=== PATIENT | female | born 1960 | race Caucasian/White ===

== ENCOUNTER 2025-06-22 06:08 | Outpatient (OUT) | payer BC, SELFPAY ==
--- OUTSIDE RECORDS SUMMARY | 2023-04-09 05:56 | XMS_ITS | Continuity of Care Document ---
Author Organization [facility] Address [address] [place] [address] Phone Care Team Providers [employer] Instructor Name Role Phone Mikey Yepez DO Unavailable Unavailable Allergies, Adverse Reactions, Alerts Substance Reaction Status Criticality lactose GI distress Active No Information Sulfa (Sulfonamide Antibiotics) Oral Blistering Active No Information Medications Medication Instructions Dosage Effective Dates (start - stop) Status Comments lisinopril 10 mg tablet take 1 tablet by oral route every day 10 MG - Active hydrochlorothiazide 25 mg tablet take 1 tablet by oral route every day 25 MG - Active multivitamin tablet - Active Co Q-10 100 mg capsule - Active MAGNESIUM (unknown strength) Not Available - Active melatonin 5 mg capsule - Active Procedures Procedure Date MED LIST DOCD IN [facility] DIAST BP 80-89 MM HG SYST BP < 130 MM HG OFFICE/OUTPATIENT VISIT, EST Attests To Documenting In EHR Current Tx ds RHYTHM ECG WITH REPORT OFFICE/OUTPATIENT VISIT, EST Attests To Documenting In EHR Current Tx ds MED LIST DOCD IN [facility] No Charge DIAST BP 80-89 MM HG SYST BP> = 140 MM HG6 IT URINALYSIS, AUTO, W/O SCOPE WELL EXAM, EST, AGE 40-64 Attests To Documenting In EHR Current Tx ds RHYTHM ECG WITH REPORT OFFICE/OUTPATIENT VISIT, EST Attests To Documenting In EHR Current Me ds URINALYSIS, AUTO, W/O SCOPE PREV VISIT, NEW, AGE 40-64 Attests To Documenting In EHR Current Me ds Advance Directives Directive Yes / No Effective Date File Name No Information Encounters Encounter Description Practice Location Reason(s) For Visit Diagnoses Date Provider Providers Copied on Encounter [facility], [id number], [place], [place], [id number] , [place] tel:[phone] [facility] No Information 3 Lucho Jensen. [address] [facility], [place], [address], [place]. tel:[phone] [facility], [address], [place], [place], [id number] , [place] tel:[phone] [facility] No Information 2 Lucho Jensen. [address] [facility], [place], [address], [place]. tel:[phone] OFFICE/OUTPA TIENT VISIT, EST [facility], [address], [place], [place], [id number] , [place] tel:[phone] [facility] B/P F/U (chief complaint) Body mass index (BMI) 32.0-32.9, adultEssential hypertensionPal pitations 2 Lucho Jensen. [address] [facility], [place], [address], [place]. tel:[phone] Referring Provider: [facility], [place], [address]. tel:[phone] OFFICE/OUTPA TIENT VISIT, EST [facility], [address], [place], [place], [id number] , [place] tel:[phone] [facility] medication management (chief complaint) PalpitationsEss ential hypertension Fe 2 Lucho Jensen. [address] [facility], [place], [address], [place]. tel:[phone] Referring Provider: Sunny Cuadra [facility], [place], [address]. tel:[phone] [facility], [address], [place], [place], [id number] , [place] tel:[phone] [facility] No Information 1 Lucho Jensen. [address] [facility], [place], [address], [place]. tel:[phone] Referring Provider: Sunny Cuadra [facility], [place], [address]. tel:[phone] WELL EXAM, EST, AGE 40-64 [facility], [address], [place], [place], [id number] , [place] tel:[phone] [facility] CPE (chief complaint) Body mass index (BMI) 31.0-31.9, adultEncounter for other general examinationEsse ntial hypertensionNon alcoholic fatty liver diseaseOther microscopic hematuriaLower urinary tract symptoms (LUTS) 1 Lucho Jensen. [address] [facility], [place], [address], [place]. tel:[phone] Referring Provider: Sunny Cuadra [facility], [place], [address]. tel:[phone] [facility], [address], [place], [place], [id number] , [place] tel:[phone] [facility] No Information 1 Lucho Jensen. [address] [facility], [place], [address], [place]. tel:[phone] OFFICE/OUTPA TIENT VISIT, EST [facility], [address], [place], [place], [id number] , [place] tel:[phone] [facility] Office visit (chief complaint) Body mass index (BMI) 35.0-35.9, adultPalpitatio ns 0 Lucho Jensen. [address] [facility], [place], [address], [place]. tel:[phone] [facility], [address], [place], [place], [id number] , [place] tel:[phone] [facility] No Information 0 Lucho Jensen. [address] [facility], [place], [address], [place]. 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 [address] [facility], [place], [address], [place]. tel:[phone] Referring Provider: Mikey Yepez, [address] [facility], [place], [address]. tel:[phone] Family History Family Member Type Diagnosis Age At Onset Paternal aunt Problem osteoporosis Sister Problem Obesity Sister Problem Diabetes mellitus Father Problem stroke Problem Family history of Gastric Ca ncer Problem Family history of hyperchole sterolemia Maternal aunt Problem Mental illness Mother Problem malignant neopla sm of breast in first degree relative Problem Family history of breast can cer Father Problem Obesity Sister Problem hypercholesterolemia Problem Family history of Diabetes m ellitus Father Problem hypertension Sister Problem hypertension Father Problem Cardiovascular disease Problem Family history of Kidney Brock lure Father Problem hypercholesterolemia Father Problem coronary arteriosclerosis Father Problem Diabetes mellitus Payers Payer name Insurance type Covered republican ID Authoriza tion(s) No Information Social History Type Description Quantity Date Captured Comments Sex Female Smoking Status No Information Chief Complaint And Reason For Visit No Information Reason For Referral Reason For Referral No Information Plan Of Treatment Date Type Action Status Goal Mammogram. Due on due Goal Tdap. Due on due Goal Shingrix #2. Due on due Goal Td vaccine. Due on due Goal H&P. Due on due Goal Document TOB Sta tus\ Cessation Advice. Due on due Goal FOBT. Due on due Goal Depression scree tl. Due on due Goal HPV testing. Due on due Goal Lipid panel. Due on due Goal Hepatitis C Scre en. Due on due Goal FIT-DNA. Due on due Goal PAP. Due on due Goal Shingrix #1. Due on due Goal Influenza Vaccin e. Due on due Goal FIT. Due on due Goal HPV. 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 Due on due Goal Colonoscopy. Due on due Goal Sigmoidoscopy. Due on due Goal Lifestyle educat ion regarding diet completed Goal Shingrix #2. Due on due Goal Influenza Vaccin e. Due on due Goal Hepatitis C Scre en. Due on due Goal Tdap. Due on due Goal Lipid panel. Due on 026 due Goal Td vaccine. Due on due Goal FOBT. Due on due Goal H&P. Due on due Goal HPV testing. Due on 025 due Goal FIT-DNA. Due on due Goal Mammogram. Due on due Goal Colonoscopy. Due on due Goal FIT. Due on due Goal Document TOB Sta tus\ Cessation Advice. Due on due Goal Sigmoidoscopy. Due on due Goal HPV. Due on due Goal Depression scree tl. Due on due Goal PAP. 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 Due on due Goal Shingrix #1. Due on due Goal Influenza Vaccin e. Due on due Goal FIT-DNA. Due on due Goal HPV testing. Due on 025 due Goal Document TOB Sta tus\ Cessation Advice. Due on due Goal FOBT. Due on due Goal Sigmoidoscopy. Due on due Goal Hepatitis C Scre en. Due on due Goal Mammogram. Due on due Goal HPV. Due on due Goal Shingrix #2. Due on due Goal H&P. 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 Due on due Goal Colonoscopy. Due on due Goal Tdap. Due on due Goal FIT. Due on due Goal Td vaccine. Due on due Goal PAP. Due on due Goal Shingrix #1. Due on due Goal Lipid panel. Due on due Goal Depression scree lt. Due on due Goal FIT-DNA. Due on due Goal Influenza Vaccin e. Due on due Goal Depression scree tl. Due on due Goal Mammogram. Due on due Goal Shingrix #1. Due on due Goal Document TOB Sta tus\ Cessation Advice. Due on due Goal Lipid panel. Due on due Goal HPV testing. Due on due Goal Shingrix #2. Due on due Goal HPV. Due on due Goal PAP. Due on due Goal H&P. Due on due Goal Colonoscopy. Due on due Goal FIT. Due on due Goal Sigmoidoscopy. Due on due Goal Hepatitis C Scre en. Due on due Goal Tdap. 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 Due on due Goal Td vaccine. Due on due Goal FOBT. Due on due Goal Lifestyle educat ion regarding diet completed Goal Lifestyle educat ion regarding diet completed Goal FIT-DNA. Due on due Goal HPV. Due on due Goal FIT. Due on due Goal Tdap. 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 Due on due Goal Mammogram. Due on due Goal Document TOB Sta tus\ Cessation Advice. Due on due Goal Lipid panel. Due on 025 due Goal Shingrix #1. Due on due Goal H&P. Due on due Goal Td vaccine. Due on due Goal Sigmoidoscopy. Due on due Goal Colonoscopy. Due on due Goal PAP. Due on due Goal Shingrix #2. Due on due Goal Hepatitis C Scre en. Due on due Goal Influenza Vaccin e. Due on due Goal HPV testing. Due on due Goal Depression scree tl. Due on due Goal FOBT. Due on due Goal FOBT. Due on due Goal Depression scree tl. Due on due Goal PAP. Due on due Goal Shingrix #1. Due on due Goal Document TOB Sta tus\ Cessation Advice. Due on due Goal Lipid panel. Due on due Goal Sigmoidoscopy. Due on due Goal Influenza Vaccin e. Due on due Goal Td vaccine. Due on due Goal Mammogram. Due on 2 due Goal HPV testing. Due on due Goal Zoster vaccine ( ). Due on due Goal Tdap. Due on due Goal H&P. 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 Due on due Goal Shingrix #2. Due on due Goal Hepatitis C Scre en. Due on due Goal Colonoscopy. Due on due Goal Lifestyle educat ion regarding diet completed Goal Zoster vaccine ( ). Due on due Goal Sigmoidoscopy. Due on due Goal Colonoscopy. Due on due Goal HPV testing. Due on due Goal Td vaccine. Due on due Goal Influenza Vaccin e. Due on due Goal Tdap. Due on due Goal Document TOB Sta tus\ Cessation Advice. Due on due Goal H&P. Due on due Goal PAP. Due on due Goal Shingrix #2. Due on due Goal Shingrix #1. Due on due Goal Hepatitis C Scre en. 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 Due on due Goal Depression scree tl. Due on due Goal FOBT. Due on due Goal Lipid panel. Due on 025 due Goal Hepatitis C Scre en. Due on due Goal Document TOB Sta tus\ Cessation Advice. Due on due Goal Tdap. Due on due Goal Shingrix #2. Due on due Goal Influenza Vaccin e. Due on due Goal H&P. Due on due Goal Zoster vaccine ( 1st). Due on due Goal FOBT. Due on due Goal Shingrix #1. Due on due Goal Depression scree tl. Due on due Goal Colonoscopy. Due on due Goal Td vaccine. Due on 20 due Goal Sigmoidoscopy. Due on due Goal Lifestyle educat ion regarding diet completed Referral Ordered: [facility] [place], Urology [facility] : Urology (related to Lower urinary tract symptoms (LUTS)) ordered Referral Referred To: Urology [facility], Urology [address], [phone] Ordered: Referrals: [facility] : Urology. Urology [facility], Urology [facility]. Evaluate and treat ordered Future Order: Lab Order THYROXIN E FREE (T4) ([id number]), Scheduled for: Ordered Future Order: Lab Order BASIC ME TABOLIC PANEL ([id number]), Scheduled for: Ordered Future Order: Lab Order THYROID STIMULATING HORMONE (TSH) ([id number]), Scheduled for: Ordered Future Order: Lab Order T3 FREE ([id number]), Scheduled for: Ordered Future Order: Radiology Order EC G Monitor/Record Only 48 HRS ([id number]), Ordered on: Ordered Future Order: Lab Order CBC With Differential/Platelet ([id number]), Scheduled for: Ordered Future Order: Lab Order Comp. Me tabolic Panel (14) ([id number]), Scheduled for: Ordered Future Order: Lab Order Hemoglob in A1c ([id number]), Scheduled for: Ordered Future Order: Lab Order Lipid Pa willam ([id number]), Scheduled for: Ordered Future Order: Lab Order TSH ([id number]), Scheduled for: Ordered Future Order: Lab Order Triiodot hyronine,Free,Serum ([id number]), Scheduled for: Ordered Future Order: Lab Order Thyroxin e (T4) Free, Direct, S ([id number]), Scheduled for: Ordered Future Order: Radiology Order Sc reening Mammography Digital ([id number]), Ordered on: Ordered Future Order: Lab Order CBC With Differential/Platelet ([id number]), Scheduled for: Ordered Future Order: Lab Order Comp. Me tabolic Panel (14) ([id number]), Scheduled for: Ordered Future Order: Lab Order Hemoglob in A1c ([id number]), Scheduled for: Ordered Future Order: Lab Order Lipid Pa willam ([id number]), Scheduled for: Ordered Future Order: Lab Order Lipid Pa willam ([id number]), Scheduled for: Ordered Future Order: Lab Order Hepatic Function Panel (7) ([id number]), Scheduled for: Ordered History Of Present Illness Encounter Date Complaint History Of Prese nt Illness B/P F/U March 2022 cindy ortega to [place] to help Aunt Vitamins: CoQ 10, Vitamin D, Vitamin B complex, Mag, niacin, melatonin allergies: sulfa/blistering, lactose intolerance and seasonal allergies Palpitations: improved with adjustment in BP medicine now normal essential hypertension: elevated with 15 pound weight gain and medicine adjusted - lisinopril 10 mg daily and HCTZ 25 mg daily with normal blood pressure at home on current regimen urgency/frequency with hx of microscopic hematuria: has seen urology in the past out of state ([place]) with completion of cystoscopy - caffeine is an irritant ( but not completely resolved)upper and lower back pain: hx of surgery in past and intermittent injections; last injection in 2018 Fatty liver disease: hx in the past and has been told hypertriglyceridemia: not tolerant to statins, using fish oil, lost 30 pounds Former smoker: 40 years, 1/2 pack per day. Quit in 2019, Quit with chantix 2 Aunts dialysis(paternal) Aunt (paternal) breast Cancer; Mother with breast Cancer and RA ( 70 years old ) father with HTN, CAD, DM, CVA; sister with DM, HTNhx of colonoscopy June 2019, 11 polyps GAT 5 year follow up hx of endometrial ablation Discussed shingrix vaccine COVID vaccine completed, moderna Mammogram: May 2021 sentara normal pap smear, May 2020pap smear completed in 2011 medication management March 2022 * moving to [place] to help Aunt Vitamins: CoQ 10, Vitamin D, Vitamin B complex, Mag, niacin, melatonin allergies: sulfa/blistering, lactose intolerance and seasonal allergies Palpitations: daily now and started noticing changes june 2020 - not related to caffeine use and under more stress lately essential hypertension: elevated with 15 pound weight gain, SBP > 140's - does not want to remain on HCTZ due to problems with urination and frequency - has tried lisinopril in past and tolerated meds well and willing to start - will continue with use HCT 12.5 mg prn for swelling urgency/frequency with hx of microscopic hematuria: has seen urology in the past out of state (2010) with completion of cystoscopy - caffeine is an irritant ( but not completely resolved upper and lower back pain: hx of surgery in past and intermittent injections; last injection in 2018 Fatty liver disease: hx in the past and has been told hypertriglyceridemia: not tolerant to statins, using fish oil, lost 30 pounds Former smoker: 40 years, 1/2 pack per day. Quit in 2019, Quit with chantix 2 Aunts dialysis(paternal) Aunt (paternal) breast Cancer; Mother with breast Cancer and RA ( 70 years old ) father with HTN, CAD, DM, CVA; sister with DM, HTNhx of colonoscopy June 2019, 11 polyps GAT 5 year follow up hx of endometrial ablation Discussed shingrix vaccine COVID vaccine completed, moderna Mammogram: May 2021 sonjaara normal pap smear, May 2020pap smear completed in 2011 CPE Vitamins: CoQ 10 , Vitamin D, Vitamin B complex, Mag, niacin, melatonin allergies: sulfa/blistering, lactose intolerance and seasonal allergies Palpitations: daily but her watch has normal heart rate readings - denies any excess caffeine currently - also reporting that she printed out readings of EKG from her watch and did not understand interpretation essential hypertension: HCTZ 25 mg daily and patient STOPPED taking medicine urgency/frequency with hx of microscopic hematuria: has seen urology in the past out of state (2010) with completion of cystoscopy - no new back pain, no nausea or emesis, no vaginal discharge - no recurrent sexual activity - caffeine is an irritant ( but not completely resolved rib cage pain: improved after cystic changes in breast - noticing better after breast cyst burstupper and lower back pain: hx of surgery in past and intermittent injections; last injection in 2018 Fatty liver disease: hx in the past and has been told hypertriglyceridemia: not tolerant to statins, using fish oil, lost 30 pounds Former smoker: 40 years, 1/2 pack per day. Quit in 2019, Quit with chantix 2 Aunts dialysis(paternal) Aunt (paternal) breast Cancer; Mother with breast Cancer and RA ( 70 years old ) father with HTN, CAD, DM, CVA; sister with DM, HTNhx of colonoscopy June 2019, 11 polyps GAT 5 year follow up hx of endometrial ablation Discussed shingrix vaccine COVID vaccine completed, moderna Mammogram: May 2021 sentara normal pap smear, May 2020pap smear completed in 2011 Office visit Vitamins: CoQ 10 , Vitamin D, Vitamin B complex, Mag, niacin, melatonin allergies: sulfa/blistering, lactose intolerance and seasonal allergies Palpitations: daily but her watch has normal heart rate readings - denies any excess caffeine currently - also reporting that she printed out readings of EKG from her watch and did not understand interpretation essential hypertension: HCTZ 25 mg daily rib cage pain: improved after cystic changes in breast - noticing better after breast cyst burstupper and lower back pain: hx of surgery in past and intermittent injections; last injection in 2018 Fatty liver disease: hx in the past and has been told hypertriglyceridemia: not tolerant to statins, using fish oil Former smoker: 40 years, 1/2 pack per day. 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 Vitamins: CoQ 10 , Vitamin D, Vitamin B complex, Mag, niacin, melatonin allergies: sulfa/blistering, lactose intolerance and seasonal allergies essential hypertension: HCTZ 25 mg daily vaginal mass: noticed after colonoscopy and has not grown and no pain - no vaginal discharge or bleeding - resolved and barely present rib cage pain: improved after cystic changes in breast - noticing better after breast cyst burstupper and lower back pain: hx of surgery in past and intermittent injections; last injection in 2018 Fatty liver disease: hx in the past and has been told hypertriglyceridemia: not tolerant to statins Former smoker: 40 years, 1/2 pack per day. Quit in 2019, Quit with chantix 2 Aunts dialysis(paternal) Aunt (paternal) breast Cancer; Mother with breast Cancer and RA ( 70 years old ) father with HTN, CAD, DM, CVA; sister with DM, HTNhx of colonoscopy June 2019, 11 polyps GAT 5 year follow up hx of endometrial ablation Mammogram: 2019 and normally completes sentarapap smear completed in 2011 Functional Status Date Functional Assessmen t No Information Instructions Date Instruction Additional Infor parish Lifestyle education regarding di et Related to Body mass index [BMI] 32.0-32.9, adult Lifestyle education regarding di et Related to Body mass index [BMI] 31.0-31.9, adult Lifestyle education regarding di et Related to Body mass index [BMI] 31.0-31.9, adult Lifestyle education regarding di et Related to Body mass index (BMI) 35.0-35.9, adult Lifestyle education regarding di et Related to Body mass index (BMI) 35.0-35.9, adult Assessments Type Assessment Date No Information Patient Care Teams Name Effective Dates (start - stop) Status Members No Information
--- OUTSIDE RECORDS SUMMARY | 2025-06-02 05:19 | XMS_ITS | Continuity of Care Document ---
Author Organization [facility] Address [address] [place] [address] Phone Care Team Providers Care Product Marketing Director Name Role Phone GMC, Provider Unavailable Unavailable Allergies, Adverse Reactions, Alerts Substance Reaction Status Criticality Sulfa (Sulfonamide Antibiotics) Other Active No Information CETIRIZINE HCL Oral blisters(moderate) Active No Information Sulfa (Sulfonamide Antibiotics) Oral blisters(moderate ) Active No Information Medications Medication Instructions Dosage Effective Dates (start - stop) Status Comments meloxicam 15 mg tablet take 1 tablet by oral route every day 15 MG - Active gabapentin 300 mg capsule take 1 capsule by oral route 3 times every day as needed for pain - Active Acetaminophen Extra Strength 500 mg tablet 2 tablets q 8 hrs orally for 7 days - Active Take as needed after 7 days aspirin 81 mg tablet,delayed release Take one tablet by mouth two times per day - Active Start day after surgery for DVT cephalexin 500 mg capsule Take one capsu le by mouth every eight hours - Active Take 1 every 8 hours for 3 doses meloxicam 15 mg tablet 1 tablet daily - Active If prior auth required DO NOT FILL ondansetron HCl 4 mg tablet 1T every 8 hours prn for nausea/vomiting - Active oxycodone 5 mg tablet 1-2 po q 4-6 hrs prn pain - Active 7 Day Supply - Pt refuses Narcan tramadol 50 mg tablet 1-2 po q 6 hours prn pain - Active 7 Day Supply - Pt refuses Narcan gabapentin 300 mg capsule take 1 capsule by oral route 2 times every day 300 MG - Active lisinopril 20 mg tablet TAKE ONE TABLET BY MOUTH EVERY PM - Active hydrochlorothiazide 25 mg tablet TAKE ONE TABLET BY MOUTH EVERY AM - Active omeprazole 10 mg capsule,delayed release TAKE ONE TABLET BY MOUTH EVERY PM - Active magnesium 250 mg tablet TAKE ONE TABLET BY MOUTH EVERY PM - Active vitamin D3 125 mcg (5,000 unit)-vitamin K2 90 mcg capsule TAKE ONE TABLET BY MOUTH EVERY AM (STARTING 11/11/24) - Active cephalexin 250 mg capsule TAKE ONE TABLE T BY MOUTH TWICE DAILY FOR SEVEN DAYS (AM/PM) - Active meloxicam 15 mg tablet take 1 tablet by oral route every day 15 MG - Active Procedures Procedure Date Office/outpatient visit,[facility] [place]24 X-RAY EXAM HIP UNI 2-3 VIEWS X-RAY EXAM HIP UNI 2-3 VIEWS Postop followup visit Collagen dressing >48 sq in Gauze <= 16 sq in w/border Total hip arthroplasty &prosthesis PA Total Hip Arthoplasty & Prosthesis Therapeutic activities (one on one) PT RE-EVAL EST PLAN CARE Surgery Prepay No Charge Office/outpatient visit,[facility] 2024 Electrocardiogram, complete (ECG) Walker folding wheeled w/o s Physical Tx exercise Therapeutic activities (one on one) PT EVAL MOD COMPLEX 30 MIN Office/outpatient visit,[facility] 2023 X-RAY EXAM HIPS BI 3-4 VIEWS Advance Directives Directive Yes / No Effective Date File Name No Information Encounters Encounter Description Practice Location Reason(s) For Visit Diagnoses Date Provider Providers Copied on Encounter [facility] [address], [facility] [place], [place] tel:[phone] [facility] No Information 5 [facility] [place]. . Referring Provider: Augustine Diaz, [address] [facility] [address], [place], [address]. tel:[phone] [facility] [address], [facility] [place], [place] tel:[phone] [facility] Unilateral primary osteoarthritis, right hip 5 Ileana Bradshaw. [address] [facility], [address], [place], [address], [place]. tel: [phone] Referring Provider: Augustine Diaz, [address] [facility] [address], [place], [address]. tel:[phone] Office/outpa tient visit,est, mod [facility] [address], [facility] [place], [place] tel:[phone] [facility] Unilateral primary osteoarthritis, right hip 5 Ileana Bradshaw. [address] [facility], [address], [place], [address], [place]. tel: [phone] Referring Provider: Augustine Diaz, [address] [facility] [address], [place], [address]. tel:[phone] [facility], [facility] [place], [place] tel:[phone] [facility] Unilateral primary osteoarthritis, left hipPresence of left artificial hip joint 5 Cole Rojas. [address] [facility], [address], [place], [address], [place]. tel: [phone] Referring Provider: Augustine Diaz, [address] [facility] [address], [place], [address]. tel:[phone] [facility] [address], [address], [place] tel:[phone] [facility] [place] No Information 5 Ileana Bradshaw. [address], [address], [place], [address], [place]. tel: [phone] Referring Provider: Augustine Diaz, [address], [place], [address]. tel:[phone] [facility], [address] [place], [address], [place] tel:[phone] [facility] [place] No Information 5 Ileana Bradshaw. [address], [address], [place], [address], [place]. tel: [phone] Referring Provider: Augustine Diaz, [address], [place], [address]. tel:[phone] [facility], [address] [place], [address], [place] tel:[phone] [facility] No Information 5 Ileana Bradshaw. [address], [address], [place], [address], [place]. tel: [phone] Referring Provider: Augustine Diaz, [address], [place], [address]. tel:[phone] [facility], [address] [place], [address], [place] tel:[phone] [facility] No Information 5 Ileana Bradshaw. [address], [address], [place], [address], [place]. tel: [phone] Referring Provider: Augustine Diaz, [address], [place], [address]. tel:[phone] [facility], [address] [place], [address], [place] tel:[phone] [facility] No Information 5 Hemalatha Granados. [address] [facility], [address], [place], [address], [place]. tel:[phone] Referring Provider: Augustine Diaz, [address] [facility] [address], [place], [address]. tel:[phone] [facility], [facility] [place], [address], [place] tel:[phone] [facility] No Information 5 Cole Rojas. [address] [facility], [address], [place], [address], [place]. tel: [phone] Referring Provider: Augustine Diaz, [address] [facility] [address], [place], [address]. tel:[phone] [facility], [address] [place] [address], [address], [place] tel:[phone] [facility] No Information 5 Annie Moon. [address] [facility], [place], [place], [id number] , [place]. tel:[phone] Referring Provider: Augustine Diaz, [address] [facility] [address], [place], [address]. tel:[phone] [facility], [address] [place] [address], [address], [place] tel:[phone] [facility] No Information 5 Ileana Bradshaw. [address] [facility], [address], [place], [address], [place]. tel:[phone] Referring Provider: Augustine Diaz, [address] [facility] [address], [place], [address]. tel:[phone] [facility], [address], [place] tel:[phone] [facility] [place] No Information 5 Ileana Bradshaw. [address] [facility], [address], [place], [address], [place]. tel: [phone] Referring Provider: Augustine Diaz, [address], [place], [address]. tel:[phone] [facility], [facility] [address] [place], [place], [facility], [place] tel:[phone] [facility] Primary osteoarthritis of left hip 5 Ileana Bradshaw. [address], [address], [place], [address], [place]. tel:[phone] Referring Provider: Augustine Diaz, [address], [place], [address]. tel:[phone] [facility], [facility], [place] tel:[phone] 700 [facility] Primary osteoarthritis of left hip 5 Ileana Bradshaw. [address], [address], [place], [address], [place]. tel:[phone] Referring Provider: Augustine Diaz, [address], [place], [address]. tel:[phone] [facility]pa [facility], [facility] [address] [place], [place], [facility], tel:[phone] 700 [facility] Preoperative examinationPain Preoperative cardiovascular examinationArth ritis of left hipOSA (obstructive sleep apnea)Essential hypertensionOth er hyperlipidemiaO besity (BMI 30-39.9)No contraindicatio n to deep vein thrombosis (DVT) prophylaxisAcut e UTI 5 Dora Dino. [address], [address], [place], [place], [id number] , [place]. tel:[phone] Referring Provider: Augustine Diaz, [address], [place], [address]. tel:[phone] [place], [place] [address], [facility] [address] [place], [place], [facility], [place] tel:[phone] 700 [facility] Unilateral primary osteoarthritis, left hip 5 Ileana Bradshaw. [address], [place], [address], [place]. tel:[phone] Referring Provider: Augustine Diaz, [address], [place], [address]. tel:[phone] [facility], [facility] [place], [address], [place] tel:[phone] [facility] [place] No Information 5 Carolina Hilario. [address], [place], [place], [id number] , [place]. tel: [phone] Referring Provider: Augustine Diaz, [address] [facility] [address], [place], [address]. tel:[phone] [facility], [facility] [place], [address], [place] tel:[phone] [facility] No Information 4 Ileana Bradshaw. [address] [facility], [address], [place], [address], [place]. tel:[phone] Referring Provider: Charito Garner, [address] [facility] [address], [place], [address]. tel:[phone] Office[facility]outpa [facility]ient [facility], [facility] [place], [address], [place] tel:[phone] [facility] Primary osteoarthritis of left hip 4 Ileana Bradshaw. [address] [facility], [address], [place], [address], [place]. tel:[phone] Referring Provider: Charito Garner, [address] [facility] [address], [place], [address]. tel:[phone] Family History Family Member Type Diagnosis Age At Onset Mother Problem (finding) Cancer Maternal Grandmother Problem (finding) Cancer Father Problem (finding) Diabetes mellitus Maternal Grandmother Problem (finding) Family history of Stroke Father Problem (finding) Family history of Heart disease Paternal Grandfather Problem (finding) Family history of Heart disease Sister Problem (finding) Diabetes mellitus Sister Problem (finding) Hypertension Father Problem (finding) Hypertension Payers Payer name Insurance type Covered constitution party ID Isaias das(joelle) Magda - [id number] CI [id number] Social History Type Description Quantity Date Captured Comments Alcohol Use Details Unknown Caffeine Use Details Unknown Tobacco Use Status No Information Smoking Status No Information Sex Female Chief Complaint And Reason For Visit No Information Reason For Referral Reason For Referral No Information Plan Of Treatment Date Type Action Status Referral Ordered: UA, UCX on 11/17/2024 to demonstrate clearance of current UTI after she finishes antibiotic on 11/14/2024 (related to Pre-op evaluation) ordered Appointment Magda> Kristen David - RTH A II BOOKED History Of Present Illness Encounter Date Complaint History Of Prese nt Illness Hip Hip Evaluation Patient presents for a right Hip Evaluation. Patient had LTHA on 12/01/24 with [facility] and has no concerns at this time Patient states they been having pain for over 5 years and is progressively worsening. Their pain is intermittent/constant in timing, mild/moderate/severe in nature, located groin/buttocks/low back, and rated 9/10. Their symptoms are exacerbated with prolonged standing/walking/climbing stairs/rising from a seated position/putting on socks and shoes. The pain is interfering with their daily activities and decreasing their quality of life. They have utilized ice/heat/topicals/Tylenol/NSAIDs(ibuprofen)/melox icam/cortisone Injections/PT with minimal relief. They deny any previous injuries, falls, trauma, or surgery to the hip. Post-Op Patient presents for a left hip follow-up S/P LTHA 12/01/24 K[facility]. Patient states they are doing well, denies any pain, tolerated physical therapy well, and happy with their ROM and surgical outcome. She would like to plan on scheduling a RTHA later this year, her right hip causes pain with walking and going up/down stairs. Consult from surgeon The patient , Kristen David, is a 64-year-old female who presents at the request of Dr.Keith Ielana BENITEZ in anticipation of LTHR. Patient reports more than a year of insidious onset progressive disabling symptoms affecting her left hip described as constant moderate aching pain accompanied by locking catching gait disturbance as well as occasional farshad instability becoming severe with activity and failing conservative management. With imaging demonstrating advanced arthritic change the patient therefore presents for definitive surgical intervention.Patient did report dysuria to her primary care doctor 11/03/2024. Urinalysis consistent with UTI and patient initiated Keflex on 11/07/2023. She reports near complete resolution of her dysuria subsequent to initiation of antibiotic therapy.Patient denies additional recent or significant illness event or trauma of note. Patient denies current systemic complaints. Internal medicine consulted by surgeon regarding the patient's ROGELIO no current CPAP due to recall awaiting new device, HLD, HTN, and obesity Hip Functional Status Date Functional Assessmen t No Information Instructions Date Instruction Additional Infor mation No Information Assessments Type Assessment Date No Information Patient Care Teams Name Effective Dates (start - stop) Status Members No Information
--- OUTSIDE RECORDS SUMMARY | 2025-06-17 14:30 | XMS_ITS | Encounter Summary ---
Author Organization [facility] Address [address] [place] [address] Care Team Providers Care Clay Caster Name Role Phone Adebayo Frye MD Primary Care Provider [phone] Reason for Referral * Consultation (Routine) - Authorized Specialty Diagnoses / Procedures Referred By Matilde dunn Referred To Contact Urogynecology Diagnoses Cystocele with rectocele Urinary frequency Urinary urgency Presence of neurostimulator Procedures OR OFFICE/OUTPATIENT NEW HIGH MDM 60 MINUTES Robbie Badillo DO [address] [place] [address] Phone: tel: [place]: [place] [address] [facility], [address] [place] [address] Phone: tel: fax: Referral ID Status Reason Start Date Expiration Date Visits Requested Visits Authorized [id number] Authorized Specialty Services Required 06/17/2025 12/14/2025 1 1 Reason for Visit * Reason Comments Post-op Visit Pt presents for 2 we ek post op. Having yeast infection sx of dc and irritation. Feeling stimulation in her vaginal area. Encounter Details Date Type Department Care Team (Latest Contact Info) Description 06/17/2025 2:30 PM EDT Office Visit [facility] [address] [facility] [address] [place] [phone] Robbie Badillo, [address] [place] [address] Encounter for postoperative care (Primary Dx); Vulvar irritation; Cystocele with rectocele; Urinary frequency; Urinary urgency; Presence of neurostimulator; Vaginal yeast infection; Pelvic pressure in female; Cutaneous candidiasis Social History Tobacco Use Types Packs/Day Years Used Date Smoking Tobacco: Former Cigarettes Q uit: 06/2022 Smokeless Tobacco: Never Alcohol Use Standard Drinks/Week Comments Yes 1 (1 standard drink = 0.6 oz pur e alcohol) once a year Comments No Sex and Gender Information Value Date Recorded Sex Assigned at Female 02/28/2024 7:31 PM EDT Legal Sex Female 6:58 PM EDT Gender Identity Female 02/28/2024 7:31 PM EDT Sexual Orientation Not on file 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 Subjective Kristen Callahan is a 64 y.o. female Chief Complaint Patient presents with Post-op Visit Pt presents for 2 week post op. Having yeast infection sx of dc and irritation. Feeling stimulationin her vaginal area. History of Present Illness Current Outpatient Medications: ibuprofen 600 MG tablet, Take 600 mg by mouth every 6 (six) hours if needed for mild pain, Disp: , Rfl: estradiol (Estrace) 0.1 MG/GM vaginal cream, Insert 1 g into the vagina 2 (two) times a week, Disp:42.5 g, Rfl: 2 fluconazole (Diflucan) 150 MG tablet, Take 1 tablet (150 mg) by mouth 1 (one) time for 1 dose, Disp: 1 tablet, Rfl: 0 gabapentin (Neurontin) 300 MG capsule, Take 300 mg by mouth in the morning and 300 mg in the evening and 300 mg before bedtime., Disp: , Rfl: glimepiride (Amaryl) 2 MG tablet, Take 2 mg by mouth., Disp: , Rfl: losartan (Cozaar) 25 MG tablet, Take 25 mg by mouth Daily, Disp: , Rfl: metFORMIN (Glucophage) 500 MG tablet, Take 500 mg by mouth in the morning and 500 mg before bedtime., Disp: , Rfl: metoprolol succinate XL (Toprol-XL) 50 MG 24 hr tablet, Take 50 mg by mouth., Disp: , Rfl: nystatin-triamcinolone (Mycolog II) ointment, Apply topically in the morning and before bedtime., Disp: 15 g, Rfl: 0 omeprazole (PriLOSEC) [address] capsule, Take 40 mg by mouth, Disp: , Rfl: oxybutynin XL (Ditropan-XL) 5 MG 24 hr tablet, Take 1 tablet (5 mg) by mouth Daily Do not crush, chew, or split., Disp: 30 tablet, Rfl: 5 spironolactone (Aldactone) 25 MG tablet, 1 (one) time each day at the same time., Disp: , Rfl: Past Medical History: Diagnosis Date Arthritis Cataract Cystocele with rectocele Cystocele and rectocele with incomplete uterovaginal prolapse DM (diabetes mellitus) ([facility]) Hypertension Past Surgical History: Procedure Laterality Date BACK SURGERY Right 03/27/2024 dr acosta BILATERAL OOPHORECTOMY 1990 CHOLECYSTECTOMY HYSTERECTOMY 1989 ANASTASIIA SACRAL NERVE STIMULATOR PLACEMENT 06/02/2025 Interstim X implant SPINAL FUSION URETHRAL SLING 05/14/2018 R-TVT Family History Problem Relation Name Age of Onset Diabetes Mother Jacki Diabetes Father Dimitry OB History Para Term AB Living 2 0 0 0 0 2 SAB IAB Ectopic Multiple Live Births 0 0 0 0 2 # Outcome Date GA Lbr Travis/2nd Weight Sex Type Anes PTL Lv 2 Vag-Spont MACY 1 Vag-Spont MACY Obstetric Comments ANASTASIIA/BSO Review of Systems All negative unless documented in treatment Objective Visit Vitals BP 130/82 Ht 5' 4.5 Wt 150 lb BMI 25.35 kg/m?? OB Status Postmenopausal Smoking Status Former BSA 1.76 m?? Allergies Allergen Reactions Morphine Rash and GI intolerance Other Reaction(s): Agitated, sweating, dry heaves, N&V, Nausea and vomiting nausea, dry heaves Physical Exam Constitutional: Appearance: Normal appearance. Genitourinary: Vulva, bladder, rectum and urethral meatus normal. Genitourinary Comments: Gr 2 cystocele, Gr 1 rectocele Right Labia: No lesions or skin changes. Left Labia: No lesions or skin changes. No vaginal discharge. No vaginal atrophy present. Right Adnexa: not tender and no mass present. Left Adnexa: not tender and no mass present. No cervical motion tenderness or lesion. No parametrium nodularity or thickening present. Uterus is not tender. Uterus is anteverted. HENT: Head: Normocephalic and atraumatic. Cardiovascular: Rate and Rhythm: Normal rate and regular rhythm. Heart sounds: Normal heart sounds. Pulmonary: Effort: Pulmonary effort is normal. Breath sounds: Normal breath sounds. Abdominal: General: There is no distension. Palpations: Abdomen is soft. There is no mass. Hernia: No hernia is present. Musculoskeletal: Right lower leg: No edema. Left lower leg: No edema. Comments: InterStim site is on the left and is intact and dry without erythema or signs of infection. Neurological: Mental Status: She is alert and oriented to person, place, and time. Skin: General: Skin is warm and dry. Findings: No rash. Procedures ICD-10-CM 1. Encounter for postoperative care Z48.89 2. Vulvar irritation N90.89 nystatin-triamcinolone (Mycolog II) ointment 3. Cystocele with rectocele N81.10 Ambulatory referral to Urogynecology N81.6 4. Urinary frequency R35.0 Ambulatory referral to Urogynecology 5. Urinary urgency R39.15 Ambulatory referral to Urogynecology 6. Presence of neurostimulator Z96.82 Ambulatory referral to Urogynecology 7. Vaginal yeast infection B37.31 nystatin-triamcinolone (Mycolog II) ointment fluconazole (Diflucan) 150 MG tablet Patient here for routine postop: 06/02/25 Complete Interstim X. She is feeling pulsation in the vagina but states she has not really noticed an improvement in her symptoms. Impedances good. She is currently on program 2 at 2.0. Changed to program 4 at 1.5- feeling pulsation in correct location. Discussed trying different programs and may take a few adjustments to notice an improvement in her symptoms. She has c/o a lot of pelvic pressure, vaginal discharge and irritation. On exam, erythematous vulva and vagina and Gr 2 cystocele, Gr 1 rectocele. She is very unhappy with her symptoms and her treatment. She had pessary in the past, declines trying pessary again. Discussed referral to urogynecology for alternative treatment options. Denies any bowel issues. Physical exam shows well healed incisions. No signs of infection. Can increase activity as tolerated. We will treat her vulvar irritation which looks like it might be cutaneous candidiasis with Mycolog-II and oral Diflucan. Entered by Georgia Todd LPN acting as scribe for Dr. Robbie Badillo. Signature: Georgia Todd LPN The documentation recorded by the scribe accurately reflects the service(s) I personally performed and the decisions I made. Signature: Robbie Badillo DO Assessment & Plan documented in this encounter Plan of Treatment Scheduled Orders Name Type Priority Associated Diagnoses Orde r Schedule Urine culture Microbiology Routine Urinary frequency Urinary urgency Pelvic pressure in female Ordered: 06/17/2025 Scheduled Referrals Name Type Priority Associated Diagnoses Orde r Schedule Ambulatory referral to Urogynecology Outpatient Referral Routine Cystocele with rectocele Urinary frequency Urinary urgency Presence of neurostimulator Expected: 06/17/2025 (Approximate), Expires: 12/18/2025 documented as of this encounter Visit Diagnoses Diagnosis Encounter for postoperative care- Primary Vulvar irritation Cystocele with rectocele Urinary frequency Urinary urgency Urgency of urination Presence of neurostimulator Vaginal yeast infection Candidiasis of vulva and vagina Pelvic pressure in female Cutaneous candidiasis documented in this encounter Care Teams Clay Caster Relationship Specialty Start Date End Date Adebayo Frye MD [address] [place] [address] PCP - General Pediatrics 03/27/23 documented as of this encounter
--- OUTSIDE RECORDS SUMMARY | 2025-06-22 06:14 | XMS_ITS | Clinical Summary ---
Author Organization [facility] Address [address] [place] [address] Care Team Providers Care Stoker Erector Name Role Phone Adebayo Frye Primary Care Provider [phone] Farhan Cee Unavailable [phone] Allergies Active Allergy Reactions Criticality Noted Date Comments Morphine Intolerance 07/19/2016 Medications aspirin, enteric coated (ASPIRIN, ENTERIC COATED) 81 mg EC tablet Take by mouth once daily. Active lisinopril (ZESTRIL, PRINIVIL) 20 mg tablet Take 1 tablet by mouth once daily. 90 tablet 3 08/13/2017 Active spironolactone (ALDACTONE) 25 mg tablet Take 1 tablet by mouth once daily. 90 tablet 3 10/17/2017 Active metoprolol succinate ER (TOPROL XL) 50 mg 24 hr tablet Take 1 tablet by mouth once daily. 90 tablet 3 12/21/2017 Active Family History Medical History Relation Comments Colon Cancer Father Diabetes Father Diabetes Mother Heart Mother CHF Relation Status Comments Father Mother Social History Tobacco Use Types Packs/Day Years Used Date Smoking Tobacco: Former Cigarettes 1 35 0 07/14/1981 - 07/14/2016 Smokeless Tobacco: Never Alcohol Use Standard Drinks/Week Comments No 0 (1 standard drink = 0.6 oz pur e alcohol) Area Deprivation Index Answer Date Geovanni rded National Score (1-100), lower number is lower ri sk Not on file 10/13/2020 State Score (1-10), lower number is lower risk N ot on file 10/13/2020 Data from: https://www.neighborhoodatlas.medicine.[facility].edu/. 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 Not on file Not on file Last Filed Vital Signs Vital Sign Reading Time Taken Comments Blood Pressure 132/70 01/04/2018 2:02 PM EST Pulse 83 01/04/2018 2:02 PM EST Temperature - - Respiratory Rate 18 01/04/2018 2:02 PM EST Oxygen Saturation 100% 01/04/2018 2:02 PM EST Inhaled Oxygen Concentration - - Weight 59.9 kg (132 lb) 01/04/2018 2:02 PM EST Height 167.6 cm (5' 6 ) 01/04/2018 2:02 PM EST Body Mass Index 21.31 01/04/2018 2:02 PM EST Plan of Treatment Health Maintenance Due Date Last Done Comments Anxiety Screening 1978 Depression Screening 1978 HIV Screening 1978 Hepatitis C Screening 1978 DTaP,Tdap,Td Vaccine (1 - Tdap) 1979 Cervical Cancer Screening [address] Colonography 2005 Cologuard (FIT-DNA) 2005 Colonoscopy 2005 Colorectal Cancer Screening 2005 Diabetes Screening 2005 Fecal Occult Blood 2005 Lipid Screening 2005 Sigmoidoscopy 2005 Pneumococcal Vaccine: 50+ (1 of 1 - PCV) 2010 Shingrix Vaccine (1 of 2) 2010 Influenza Vaccine (#1) 2025 RSV Vaccine (1 - 1-dose 75+ series) [address] [facility] PPO OOS Care Teams Stoker Erector Relationship Specialty Start Date End Date Adebayo Frye DO PCP - General Family Medicine 10/19/15 Farhan Cee [address] [place] [address] Primary Staff Physician Cardiology 01/21/19
--- OUTSIDE RECORDS SUMMARY | 2025-06-22 06:14 | XMS_ITS | Encounter Summary ---
Author Organization [facility] Address [address] [place] [address] Care Team Providers Care Blind Teacher Name Role Phone Adebayo Frye MD Primary Care Provider [phone] Encounter Details Date Type Department Care Team (Late st Contact Info) Description 06/02/2025 External Result Encounter [facility] External Department Unsolicited Robbie Badillo, DO [address] [place] [address] Social History Tobacco Use Types Packs/Day Years [...] f ile documented as of this encounter Plan of Treatment Not on file documented as of this encounter Procedures Procedure Name Priority Date/Time Associated Diagnosis Comments XR SACRUM COCCYX 2+ VIEWS 06/02/2025 4:58 PM EDT documented in this encounter Results * XR sacrum coccyx 2+ views (06/02/2025 4:58 PM EDT) Anatomical Region Laterality Modality Sacrum, Coccyx Radiographic Radha ging 06/02/2025 4:58 PM EDT Impressions 06/02/2025 5:02 PM EDT Intraoperative views of the pelvis demonstrate a stimulator placement along the sacrum. Impression dictated by: Roberto Pride M.D. 06/02/2025 4:59 PM Dictation Location: [facility]-- Transcribed By: [facility] 06/02/251658 Dictated By: Roberto Pride II, MD 06/02/251657 Signed By: <Electronically signed by Roberto Pride II, MD in OV> 06/02/251658 Narrative 06/02/2025 5:02 PM EDT [place] [id number] XRay Report Signed Patient: Kristen Callahan MR#: [id number] 345 : 1960 Acct:[id number] Age/Sex: 64 / F ADM Date: 06/02/25 Loc: [place] Room: Type: [facility] Attending Dr: Robbie Badillo DO Copies to: Robbie Badillo DO Ordering Provider: Robbie Badillo DO Date of Service: 06/02/25 XR/XR sacrum coccyx min 2V: INTERSTIM IMPLANT XR sacrum coccyx min 2V 06/02/2025 11:20 AM SIGNS AND SYMPTOMS: INTERSTIM IMPLANT PROTOCOL: Intraoperative views of the pelvis COMPARISON: None FINDINGS: Intraoperative views of the pelvis demonstrate a stimulator placement along the sacrum. Cumulative Air Kerma in mGy: 7.73 mGy XR/XR sacrum coccyx min 2V Procedure Note Roberto Pride MD - 06/02/[address] [address] XRay Report Signed Patient: Kristen CallahanMR#: [id number] 345 : 1960Acct:[id number] Age/Sex: 64 / FADM Date: 06/02/25 Loc: [place] Room:Type: [facility] Attending Dr: Robbie Badillo DO Copies to: Robbie Badillo DO Ordering Provider: Robbie Badillo DO Date of Service: 06/02/25 XR/XR sacrum coccyx min 2V: INTERSTIM IMPLANT XR sacrum coccyx min 2V 06/02/2025 11:20 AM SIGNS AND SYMPTOMS: INTERSTIM IMPLANT PROTOCOL: Intraoperative views of the pelvis COMPARISON: None FINDINGS: Intraoperative views of the pelvis demonstrate a stimulator placementalong the sacrum. Cumulative Air Kerma in mGy: 7.73 mGy XR/XR sacrum coccyx min 2V IMPRESSION: Intraoperative views of the pelvis demonstrate a stimulator placementalong the sacrum. Impression dictated by: Roberto Pride M.D. 06/02/2025 4:59 PM Dictation Location: [place] [address] Transcribed By: [facility] 06/02/25 1659 Dictated By: Roberto Pride II, MD 06/02/25 1658 Signed By: <Electronically signed by Roberto Pride II, MD inOV> 06/02/25 1659 us Robbie Badillo DO IMG XR PROCEDURES Final Resul t documented in this encounter Visit Diagnoses Not on filedocumented in this encounter Care Teams Blind Teacher Relationship Specialty Start Date End Date Adebayo Frye MD [address] [place] [address] PCP - General Pediatrics 03/27/23 documented as of this encounter
--- OUTSIDE RECORDS SUMMARY | 2025-06-22 06:14 | XMS_ITS | Clinical Summary ---
Author Organization [facility] Address [address] [place] [address] Care Team Providers Care Assistant Women'S Tennis Coach Name Role Phone Adebayo Frye MD Primary Care Provider [phone] Allergies Active Allergy Reactions Criticality Noted Date Comments Morphine Rash,GI intolerance Low 07/19/2016 Other Reaction(s): Agitated, sweating, dry heaves, N&V, Nausea and vomiting nausea, dry heaves Medications spironolactone (Aldactone) 25 MG tablet 1 (one) time each day at the same time. Active metoprolol succinate XL (Toprol-XL) 50 MG 24 hr tablet Take 50 mg by mouth. 2 Active glimepiride (Amaryl) 2 MG tablet Take 2 mg by mouth. 3 Active gabapentin (Neurontin) 300 MG capsule Take 300 mg by mouth in the morning and 300 mg in the evening and 300 mg before bedtime. 3 Active omeprazole (PriLOSEC) [address] capsule Take 40 mg by mouth 4 Active losartan (Cozaar) 25 MG tablet Take 25 mg by mouth Daily Active estradiol (Estrace) 0.1 MG/GM vaginal creamIndication s:Vaginal atrophy Insert 1 g into the vagina 2 (two) times a week 42.5 g 2 5 01/09/20 26 Active metFORMIN (Glucophage) 500 MG tablet Take 500 mg by mouth in the morning and 500 mg before bedtime. Active oxybutynin XL (Ditropan-XL) 5 MG 24 hr tabletIndicatio ns:Urge incontinence,No cturia Take 1 tablet (5 mg) by mouth Daily Do not crush, chew, or split. 30 tablet 5 5 02/03/20 26 Active ibuprofen 600 MG tablet Take 600 mg by mouth every 6 (six) hours if needed for mild pain 5 Active nystatin-triamc inolone (Mycolog II) ointmentIndicat ions:Vulvar irritation,Vagi nal yeast infection Apply topically in the morning and before bedtime. 15 g 5 Active fluconazole (Diflucan) 150 MG tabletIndicatio ns:Vaginal yeast infection Take 1 tablet (150 mg) by mouth 1 (one) time for 1 dose 1 tablet 5 06/17/20 Active Problems Problem Noted Date Diagnosed Date BMI 23.0-23.9, adult 02/28/2024 Bulging lumbar disc 02/28/2024 Cystocele, unspecified 02/28/2024 Rectocele 02/28/2024 Wellness examination 02/28/2024 Preventative health care 02/28/2024 Breast cancer screening 02/28/2024 Postoperative examination 02/28/2024 Lumbar spinal stenosis 02/28/2024 Lumbar back pain with radicu lopathy affecting lower extremity 02/28/2024 Hypoglycemia 02/28/2024 HTN (hypertension) 02/28/2024 Vaginal yeast infection 02/28/2024 Vaginal atrophy 02/28/2024 Urge incontinence 02/28/2024 Type 2 diabetes mellitus 02/28/2024 ANUJ (stress urinary incontinence, female) 2023 Cortical age-related cataract of both eyes 03/27 Encounters Date Type Department Care Team Description 06/17/2025 2:30 PM EDT Office Visit [facility] [address] [place] [address] Robbie Badillo DO Encounter for postoperative care (Primary Dx); Vulvar irritation; Cystocele with rectocele; Urinary frequency; Urinary urgency; Presence of neurostimulator; Vaginal yeast infection; Pelvic pressure in female; Cutaneous candidiasis 06/17/2025 Travel 06/02/2025 External Result Encounter [facility] External Department Unsolicited Robbie Badillo, DO 06/02/2025 External Result Encounter [facility] External Department Unsolicited GreysonRobbie eaton, DO 05/29/2025 Refill [facility] [address] [place] [phone] JustinoRobbie Elva, DO Urge incontinence; Nocturia 05/06/2025 Telephone [facility] [address] [place] [phone] Brandi García, CHAZ 04/30/2025 Telephone [facility] [address] [place] [phone] Georgia Todd LPN 04/28/2025 1:30 PM EDT Procedure Visit [facility] [address] [place] [phone] Justino Robbie Elva, Urge incontinence (Primary Dx); Nocturia; Urinary frequency; Urinary urgency; Foul smelling urine; Acute cystitis with hematuria 04/28/2025 Travel 04/16/2025 Telephone [facility] [address] [place] [phone] Georgia Todd, CHAZ from Last 3 Months Family History Medical History Relation Name Comments Diabetes Father Dimitry Diabetes Mother Jacki Relation Name Status Comments Father Dimitry Mother Jacki Social History Tobacco Use Types Packs/Day Years Used Date Smoking Tobacco: Former Cigarettes Q uit: 06/2022 Smokeless Tobacco: Never Tobacco Cessation:Counseling Given: Not Answered Alcohol Use Standard Drinks/Week Comments Yes 1 [...] Not on file Not on f ile Last Filed Vital Signs Vital Sign Reading Time Taken Comments Blood Pressure 130/82 06/17/2025 2:48 PM EDT Pulse 71 03/27/2023 11:23 AM EDT Temperature - - Respiratory Rate - - Oxygen Saturation - - Inhaled Oxygen Concentration - - Weight 68 kg (150 lb) 06/17/2025 2:48 PM EDT Height 163.8 cm (5' 4.5 ) 06/17/2025 2:48 PM EDT Body Mass Index 25.35 06/17/2025 2:48 PM EDT Plan of Treatment Not on file Procedures Procedure Name Priority Date/Time Associated Diagnosis Comments XR SACRUM COCCYX 2+ VIEWS 06/02/2025 4:58 PM EDT GLUCOSE POCT GLUCOMETERS Routine 06/02/2025 8:50 AM EDT POCT URINALYSIS DIPSTICK Routine 04/28/2025 1:31 PM EDT Urinary frequency Urinary urgency Foul smelling urine from Last 3 Months Results * XR sacrum coccyx 2+ views (06/02/2025 4:58 PM EDT) Anatomical Region Laterality Modality Sacrum, Coccyx Radiographic Radha ging 06/02/2025 4:58 PM EDT Impressions 06/02/2025 5:02 PM EDT Intraoperative views of the pelvis demonstrate a stimulator placement along the sacrum. Impression dictated by: Roberto Pride M.D. 06/02/2025 4:59 PM Dictation Location: [place] [address] Transcribed By: [facility] 06/02/251658 Dictated By: Roberto Pride II, MD 06/02/251657 Signed By: <Electronically signed by Roberto Pride II, MD in [place]> 06/02/251658 Narrative 06/02/2025 5:02 PM EDT [facility] Main [address] [address] XRay Report Signed Patient: Kristen Callahan MR#: [id number] 345 : 1960 Acct:[id number] Age/Sex: 64 / F ADM Date: 06/02/25 Loc: [place] Room: Type: [facility] Attending Dr: Robbie Badillo DO Copies to: [...] Procedure Note Roberto Pride MD - 06/02/2025 [facility] [place] [address] XRay Report Signed Patient: Kristen CallahanMR#: [id number] 345 : 1960Acct:[id number] Age/Sex: 64 / FADM Date: 06/02/25 Loc: [place] Room:Type: [facility] Attending Dr: Robbie Badillo DO Copies to: [...] Pride M.D. 06/02/2025 4:59 PM Dictation Location: [place] [address] Transcribed By: [facility] 06/02/251658 Dictated By: Roberto Pride II, MD 06/02/251657 Signed By: <Electronically signed by Roberto Pride II, MD inOV> 06/02/25 0822 Robbie Badillo DO IMG XR PROCEDURES Final Resul t * GLUCOSE POCT GLUCOMETERS (06/02/2025 8:50 AM EDT) GLUCOSE POC GLUCOMETERS 168 mg/dL 06/02/2025 8:57 AM EDT [facility] Comment: Random Glucose Reference Range is dependent on time and content of last meal. Glucose of more than 200 mg/dL in a nonstressed, ambulatory subject supports the diagnosis of Diabetes Mellitus. COMMEMT1 Glu2: Cleaned Meter 06/02/2025 8:57 AM EDT [facility] Blood (Blood) 06/02/2025 8:5 0 AM EDT 06/02/2025 8:56 AM EDT Robbie Badillo DO LAB BLOOD ORDERABLES Final Re sult Performing Organization Address City/State/[facility] Co de Phone Number [facility] [address] [place] [address], [place] * (ABNORMAL) POCT urinalysis dipstick manually resulted (04/28/2025 1:31 PM EDT) Glucose, UA Negative Negative - 1999(110) ++++ mg/dL Bilirubin, UA Few Negative - 4(70) +++ mg/dL Ketones, UA Negative Negative - 160(16) ++++ mg/dL Spec Grav, UA 1.020 1 - 1.03 Blood, UA Positive Negative - 50 Johann/mcL pH, UA 5.0 5 - 9 Protein, UA Negative Negative - 2000(20) ++++ mg/dL Urobilinogen, UA 0.2 0.2 - 12 mg/dL Leukocytes, UA Positive Negative - 500+++ Joel/mcL Nitrite, UA Positive Negative - Positive Urine 04/28/2025 1:31 PM EDT Robbie Badillo DO POINT OF CARE TEST ENTER/EDIT ORDERABLES Final Result from Last 3 Months Insurance BCBS Care Teams Assistant Women'S Tennis Coach Relationship Specialty Start Date End Date Adebayo Frye MD [address] [place] [address] PCP - General Pediatrics 03/27/23
--- OUTSIDE RECORDS SUMMARY | 2025-06-22 06:14 | XMS_ITS | Clinical Summary ---
Author Organization [facility] Address [address] [place] [address] Phone Care Team Providers Care Bit Tapper Name Role Phone Unavailable Primary Care Provider Unavailabl e Social History Tobacco Use Types Packs/Day Years Used Date Smoking Tobacco: Never Assessed Comments Unknown Sex and Gender Information Value Date Recorded Sex Assigned at Not on file Legal Sex Female 12:52 AM EST Gender Identity Not on file Sexual Orientation Not on file Last Filed Vital Signs Vital Sign Reading Time Taken Comments Blood Pressure 142/92 02/28/2023 2:27 PM EDT Pulse 71 02/28/2023 2:27 PM EDT Temperature - - Respiratory Rate - - Oxygen Saturation 99% 02/28/2023 2:27 PM EDT Inhaled Oxygen Concentration - - Weight 71.3 kg (157 lb 4 oz) 02/28/2023 2:27 PM EDT Height 162.6 cm (5' 4 ) 02/28/2023 2:27 PM EDT Body Mass Index 26.99 02/28/2023 2:27 PM EDT Plan of Treatment Health Maintenance Due Date Last Done Comments CT Colonography 1960 Colonoscopy 1960 Colorectal Cancer Screening 1960 FIT-DNA (Cologuard) 1960 FIT 1960 HIV Screening 1960 Lipid Panel 1960 Sigmoidoscopy 1960 Yearly Adult Physical 1960 MMR Vaccines (1 of 1 - Stand nataly series) 1961 Diabetes Screening 1978 Hepatitis C Screening 1978 Cervical Cancer Screening 1981 HPV/Cotest 1981 Pap Smear 1981 DTaP/Tdap/Td Vaccines (1 - Tdap) 1982 Mammogram 2000 Pneumococcal Vaccine (1 of 1 - PCV) 2010 Zoster Vaccines (1 of 2) 2010 COVID-19 Vaccine (1 - 2023-2 5 season) 2024 Influenza Vaccine (#1) 2025 RSV High Risk: (Elderly (60+ ) or Population) (1 - 1-dose 75+ series) 2035 HIB Vaccines Aged Out No longer eligi ble based on patient's age to complete this topic HPV Vaccines Aged Out No longer eligi ble based on patient's age to complete this topic Hepatitis A Vaccines Aged Out No long er eligible based on patient's age to complete this topic Hepatitis B Vaccines Aged Out No long er eligible based on patient's age to complete this topic IPV Vaccines Aged Out No longer eligi ble based on patient's age to complete this topic Meningococcal Vaccine Aged Out No tessie aashish eligible based on patient's age to complete this topic Rotavirus Vaccines Aged Out No longer eligible based on patient's age to complete this topic Insurance [facility]
--- OUTSIDE RECORDS SUMMARY | 2025-06-22 06:14 | XMS_ITS | Encounter Summary ---
Author Organization [facility] Address [address] [place] [address] Phone Care Team Providers Care Inspector Toys Name Role Phone Unavailable Primary Care Provider Unavailabl e Encounter Details Date Type Department Care Team (Late st Contact Info) Description 07/06/2023 Scanned Document [facility] [address] [place] [address] Conversion, Onbase Social History Tobacco Use Types Packs/Day Years Used Date Smoking Tobacco: Never Assessed Comments Unknown Sex and Gender Information Value Date Recorded Sex Assigned at Not on file Legal Sex Female 12:52 AM EST Gender Identity Not on file Sexual Orientation Not on file documented as of this encounter Plan of Treatment Not on file documented as of this encounter Procedures Procedure Name Priority Date/Time Associated Diagnosis Comments OUTSIDE IMAGING SCAN 07/06/2023 OUTSIDE IMAGING SCAN 07/06/2023 documented in this encounter Results * OUTSIDE IMAGING SCAN (07/06/2023) Anatomical Region Laterality Modality Other Narrative 07/06/2023 Ordered by an unspecified provider. us Onbase Conversion OUTSIDE SCAN Final Result * OUTSIDE IMAGING SCAN (07/06/2023) Anatomical Region Laterality Modality Other Narrative 07/06/2023 Ordered by an unspecified provider. us Onbase Conversion OUTSIDE SCAN Final Result documented in this encounter Visit Diagnoses Not on filedocumented in this encounter
--- OUTSIDE RECORDS SUMMARY | 2025-06-22 06:14 | XMS_ITS | Encounter Summary ---
Author Organization [facility] Address [address] [place] [address] Phone Care Team Providers Care Weigher And Crusher Name Role Phone Unavailable Primary Care Provider Unavailabl e Encounter Details Date Type Department Care Team (Late st Contact Info) Description 09/10/2023 Scanned Document [facility] [address] [place] [address] [place] [phone] Ele Peres MD [address] [place] [address] Social History Tobacco Use Types Packs/Day Years Used Date Smoking Tobacco: Never Assessed Comments Unknown Sex and Gender Information Value Date Recorded Sex Assigned at Not on file Legal Sex Female 12:52 AM EST Gender Identity Not on file Sexual Orientation Not on file documented as of this encounter Plan of Treatment Not on file documented as of this encounter Visit Diagnoses Not on filedocumented in this encounter
--- OUTSIDE RECORDS SUMMARY | 2025-06-22 06:14 | XMS_ITS | Encounter Summary ---
Author Organization [facility] Address [address] [place] [address] Care Team Providers Care Steam Tender Name Role Phone Adebayo Frye MD Primary Care Provider [phone] Encounter Details Date Type Department Care Team (Latest Contact Info) Description 06/17/2025 Travel Social History Tobacco Use Types Packs/Day Years [...] on filedocumented in this encounter Care Teams Steam Tender Relationship Specialty Start Date End Date Adebayo Frye MD [address] [place] [id number] PCP - General Pediatrics 03/27/23 documented as of this encounter
--- OUTSIDE RECORDS SUMMARY | 2025-06-22 06:14 | XMS_ITS | Encounter Summary ---
Author Organization [facility] Address [address] [place] [address] Phone Care Team Providers Care Industrial Property Appraiser Name Role Phone Unavailable Primary Care Provider Unavailabl e Encounter Details Date Type Department Care Team (Late st Contact Info) Description 09/10/2023 Scanned Document [facility] [address] [address] [place] [phone] Ele Peres MD [address] [place] [address] Social History Tobacco Use Types [...]
== END 2025-06-22 06:09 | disposition home or self-care (01) ==
LOC: LAB 06:11
PROVIDERS: PCP Nurse Practitioner; Visit Provider Obstetrics & Gynecology
DX: R35.0 Frequency of micturition (principal); R39.15 Urgency of urination; R10.2 Pelvic and perineal pain
CPT/HCPCS: 87086; 87088; 87186

== ENCOUNTER 2025-08-21 07:47 | Outpatient (RCR) | payer BC, SELFPAY | END 2025-09-12 12:55 | disposition home or self-care (01) | LOC: PT 07:47 | PROVIDERS: PCP Nurse Practitioner; Visit Provider Nurse Practitioner Family | DX: M54.16 Radiculopathy, lumbar region (principal); R26.81 Unsteadiness on feet; M79.605 Pain in left leg | CPT/HCPCS: 97110; 97112; 97161 ==

== ENCOUNTER 2025-10-05 06:33 | Outpatient (OUT) | payer BC, SELFPAY ==
--- OUTSIDE RECORDS SUMMARY | 2025-10-05 06:40 | XMS_ITS | Clinical Summary ---
Author Organization [facility] Address [address] [place] [id number] Care Team Providers Care Construction Services Technician Name Role Phone Adebayo Frye Primary Care Provider [phone] Farhan Cee Unavailable [phone] Allergies Active AllergyReactionsCriticalityNoted DateCommentsMorphineIntolerance 07/19/2016 Medications MedicationSigDispense QuantityRefillsLast FilledStart DateEnd DateStatus aspirin, enteric coated (ASPIRIN, ENTERIC COATED) 81 mg EC tablet Take by mouth once daily.Active lisinopril (ZESTRIL, PRINIVIL) 20 mg tablet Take 1 tablet by mouth once daily. 90 tablet Active spironolactone (ALDACTONE) 25 mg tablet Take 1 tablet by mouth once daily. 90 tablet Active metoprolol succinate ER (TOPROL XL) 50 mg 24 hr tablet Take 1 tablet by mouth once daily. 90 tablet Active Family History Medical HistoryRelationCommentsColon CancerFatherDiabetesFatherDiabetesMother HeartMotherCHFRelationStatusCommentsFatherMother Social History Tobacco UseTypesPacks/DayYears UsedDateSmoking Tobacco: WabumyUrodtltuyb671 07/14/1981 - 07/14/2016Smokeless Tobacco: NeverAlcohol UseStandard Drinks/Week CommentsNo0 (1 standard drink = 0.6 oz pure alcohol)Area Deprivation IndexAnswer Date RecordedNational Score (1-100), lower number is lower riskNot on file 10/13/2020State Score (1-10), lower number is lower riskNot on file10/13/2020 Data from: https://www.neighborhoodatlas.[facility]/. 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 on fileNot on fileNot on file Last Filed Vital Signs Vital SignReadingTime TakenCommentsBlood Uyosbfio573/7003 2:02 PM EST Uaecq5007 2:02 PM ESTTemperature--Respiratory Qfpp4033 2:02 PM ESTOxygen Spuqcwioib396%01/04/2018 2:02 PM ESTInhaled Oxygen Concentration-- Xutocp44.9 kg (132 lb)01/04/2018 2:02 PM NTDByrssj574.6 cm (5' 6 )01/04/2018 2:02 PM ESTBody Mass Index21.3103 2:02 PM EST Plan of Treatment Health MaintenanceDue DateLast DoneCommentsAnxiety Jjvtfspub75/25/1978Depression Joumnlkod28/25/1978HIV Qeaskeubd19/25/1978Hepatitis C Nfgexgvmr12/25/1978 DTaP,Tdap,Td Vaccine (1 - Tdap)1979Mammogram Jlrzfuaug11/25/2000CT Nxpvfuhesiej10/25/2005Cologuard (FIT-DNA)09/29/20059873Gifglmhhtql33/25/2005 Colorectal Cancer Edlkmstqn78/25/2005Diabetes Uxiomzyyj82/25/2005Fecal Occult Blood2005Lipid Btqhgyljn82/25/3809Dyqlfwaspbnuk90/25/2005Pneumococcal Vaccine: 50+ (1 of 1 - PCV)2010Shingrix Vaccine (1 of 2)2010Covid-19 Vaccine (1 - 2024- season)2025Influenza Vaccine (#1)2025dvance Directive Cxcgkdzcko75/25/2025one Density Llrqhflev28/25/2025RSV Vaccine (1 - 1-dose 75+ series)2035 Insurance Care Teams Team MemberRelationshipSpecialtyStart DateEnd Date Adebayo Frye DO PCP - GeneralFamily Ngxldbhp66/15/15 Farhan Cee [address] [place], [place] [address] [address] Primary Staff PhysicianCardiology01/21/19
--- OUTSIDE RECORDS SUMMARY | 2025-10-05 06:40 | XMS_ITS | Clinical Summary ---
Author Organization [facility] Address [address] [place] [address] Care Team Providers Care Windows Software Developer Name Role Phone Adebayo Frye MD Primary Care Provider [phone] Allergies Active AllergyReactionsCriticalityNoted DateCommentsMorphineRash,GI intolerance Low07/19/2016 Other Reaction(s): Agitated, sweating, dry heaves, N&V, Nausea and vomiting nausea, dry heaves Medications MedicationSigDispense QuantityRefillsLast FilledStart DateEnd DateStatus spironolactone (Aldactone) 25 MG tablet 1 (one) time each day at the same time.Active metoprolol succinate XL (Toprol-XL) 50 MG 24 hr tablet Take 50 mg by mouth.09/18/2022ctive gabapentin (Neurontin) 300 MG capsule Take 300 mg by mouth in the morning and 300 mg in the evening and 300 mg before bedtime.02/28/2023ctive omeprazole (PriLOSEC) [address] capsule Take 40 mg by mouth02/01/2024ctive losartan (Cozaar) 25 MG tablet Take 25 mg by mouth DailyActive estradiol (Estrace) 0.1 MG/GM vaginal cream Indications:Vaginal atrophyInsert 1 g into the vagina 2 (two) times a week 42.5 g ctive metFORMIN (Glucophage) 500 MG tablet Take 500 mg by mouth in the morning and 500 mg in the evening and 500 mg before bedtime.Active oxybutynin XL (Ditropan-XL) 5 MG 24 hr tablet Indications:Urge incontinence,NocturiaTake 1 tablet (5 mg) by mouth Daily Do not crush, chew, or split. 30 tablet 506Active ibuprofen 600 MG tablet Take 600 mg by mouth every 6 (six) hours if needed for mild pain06/02/2025tive nystatin-triamcinolone (Mycolog II) ointment Indications:Vulvar irritation,Vaginal yeast infectionApply topically in the morning and before bedtime. 15 g 5Active nitrofurantoin, macrocrystal-monohydrate, (Macrobid) 100 MG capsule Take 100 mg by mouth5Active glimepiride (Amaryl) 4 MG tablet Take 4 mg by mouth Daily5Active glimepiride (Amaryl) 2 MG tablet Take 2 mg by mouth.Discontinued(Dose adjustment) Active Problems ProblemNoted DateDiagnosed DateBMI 23.0-23.9, adult02/28/2024ulging lumbar disc 02/28/2024ystocele, ygyhztbkwwk63/25/9319Tudqcpivj63/25/2024Wellness rpfcljyswlp03/25/2024reventative health care02/28/2024reast cancer screening 02/28/2024ostoperative wpjxoakmzvn96/25/2024Lumbar spinal iywrtsrs65/25/2024 Lumbar back pain with radiculopathy affecting lower yvpaedngv35/25/2024 Lobntpdmznkv10/25/2024HTN (hypertension)02/28/2024Vaginal yeast infection 02/28/2024Vaginal ucobifw2202/28/2024Urge yjdzzihhciyx79/25/2024Type 2 diabetes pboiufdq27/25/2024SUI (stress urinary incontinence, female)02/28/2024ortical age-related cataract of both eyes03/27/2023 Encounters DateTypeDepartmentCare EvczYignkwxvsmg82/03/2025 2:45 PM ESTOffice Visit [facility] [address] [place] [address] Robbie Badillo DO Presence of neurostimulator; Urge mvnduxdhnzxk25/03/2025amboo flowsheet [facility] [place] [facility] [address] [place] [phone] Justino Robbie DO Elva 09/07/20255214Fletat92/27/2025Telephone [facility] [place] [facility] [address] [place] [phone] Brandi García LPN from Last 3 Months Family History Medical HistoryRelationNameCommentsDiabetesFatherFrankDiabetesMotherLoisRelation NameStatusCommentsFatherFrankMotherLois Social History Tobacco UseTypesPacks/DayYears UsedDateSmoking Tobacco: FormerCigarettesQuit: mokeless Tobacco: Never Tobacco Cessation:Counseling Given: Not Answered Alcohol UseStandard Drinks/WeekCommentsYes1 (1 standard drink = 0.6 oz pure alcohol)once a yearCommentsNoSex and Gender InformationValueDate RecordedSex Assigned at RbvngWvcqlr44/25/2024 7:31 PM EDTLegal SexFemale 01/17/2023 6:58 PM EDTGender QfshyogxChupkx33/25/2024 7:31 PM EDTSexual OrientationNot on fileOccupationIndustryJob Start DateJob End Datefactory - midnightsNot on fileNot on fileNot on file Last Filed Vital Signs Vital SignReadingTime TakenCommentsBlood Txpkerrt746/9011 2:54 PM EST Slyde297603/27/2023 11:23 AM EDTTemperature--Respiratory Rate--Oxygen Saturation-- Inhaled Oxygen Concentration--Fymbci88.9 kg (154 lb)09/07/2025 2:54 PM ESTHeight 163.8 cm (5' 4.5 )06/17/2025 2:48 PM EDTBody Mass Index26.03006/17/2025 2:48 PM EDT Plan of Treatment Not on file Insurance Care Teams Team MemberRelationshipSpecialtyStart DateEnd Date Adebayo Frye MD [address] [place] [address] PCP - GeneralPediatrics03/27/23
--- OUTSIDE RECORDS SUMMARY | 2025-10-05 06:40 | XMS_ITS | Clinical Summary ---
Author Organization [facility] Address [address] [place] [address] Phone Care Team Providers Care Sales Enablement Consultant Name Role Phone Unavailable Primary Care Provider Unavailabl e Social History Tobacco UseTypesPacks/DayYears UsedDateSmoking Tobacco: Never Assessed CommentsUnknownSex and Gender InformationValueDate RecordedSex Assigned at Not on fileLegal IzrVrodaq44/26/2022 12:52 AM ESTGender IdentityNot on file Sexual OrientationNot on file Last Filed Vital Signs Vital SignReadingTime TakenCommentsBlood Uajulfas203/9204 2:27 PM EDT Oxuub8110 2:27 PM EDTTemperature--Respiratory Rate--Oxygen Kwlgejodno77% 02/28/2023 2:27 PM EDTInhaled Oxygen Concentration--Smhciv79.3 kg (157 lb 4 oz) 02/28/2023 2:27 PM EPNFifuqz731.6 cm (5' 4 )02/28/2023 2:27 PM EDTBody Mass Index26.9902/28/2023 2:27 PM EDT Plan of Treatment Health MaintenanceDue DateLast DoneCommentsCT Tugkbgkzvzlp1960Colonoscopy 1960Colorectal Cancer Zqfhgoxgf1960FIT-DNA (Cologuard)1960FIT 1960Lipid Panel1960 3879Sxfoamaqkokvs1960Yearly Adult Physical 1960MMR Vaccines (1 of 1 - Standard series)1Diabetes Screening 1978Hepatitis C Vkuynylyr07/25/1978Cervical Cancer Zvitcrupn50/25/1981 HPV/Ndpubf4109/29/1981Pap Smear1981DTaP/Tdap/Td Vaccines (1 - Tdap) 09/29/19825751Hkmayadet71/25/2000Pneumococcal Vaccine (1 of 1 - PCV)2010Zoster Vaccines (1 of 2)2010Influenza Vaccine (#1)2025OVID-19 Vaccine (1 - 2024- season)5Bone Density Scan2025RSV High Risk: (Elderly (60+) or Population) (1 - 1-dose 75+ series)2035HIB VaccinesAged OutNo longer eligible based on patient's age to complete this topicHPV Vaccines Aged OutNo longer eligible based on patient's age to complete this topic Hepatitis A VaccinesAged OutNo longer eligible based on patient's age to complete this topicHepatitis B VaccinesAged OutNo longer eligible based on patient's age to complete this topicIPV VaccinesAged OutNo longer eligible based on patient's age to complete this topicMeningococcal VaccineAged OutNo longer eligible based on patient's age to complete this topicRotavirus VaccinesAged Out No longer eligible based on patient's age to complete this topic Insurance
--- OUTSIDE RECORDS SUMMARY | 2025-10-05 06:40 | XMS_ITS | Encounter Summary ---
Author Organization [facility] Address [address] [place] [address] Care Team Providers Care Fermenting Cellars Receiver Name Role Phone Adebayo Frye MD Primary Care Provider [phone] Encounter Details DateTypeDepartmentCare Team (Latest Contact Info)Selxfetcxhl21/27/2025Telephone [facility] [address] [place] [phone] Brandi García, CHANGE RELEASE MANAGER [address] [place] [address] Social History Tobacco UseTypesPacks/DayYears UsedDateSmoking Tobacco: FormerCigarettesQuit: mokeless Tobacco: NeverAlcohol UseStandard Drinks/WeekCommentsYes1 (1 standard drink = 0.6 oz pure alcohol)once a yearCommentsNoSex and Gender InformationValueDate RecordedSex Assigned at IzlabIyhbmd02/25/2024 7:31 PM EDT Legal LbgHxymsa99/15/2023 6:58 PM EDTGender MtpvezyhApkbbz65/25/2024 7:31 PM EDT Sexual OrientationNot on fileOccupationIndustryJob Start DateJob End Datefactory - midnightsNot on fileNot on fileNot on filedocumented as of this encounter Miscellaneous Notes * Addendum Note - Jerald Torres MA - 2025 2:46 PM ESTAddended by: JERALD TORRES on: 2025 02:46 PM Modules accepted: Orders * Addendum Note - Jerald Torres MA - 2025 2:44 PM ESTAddended by: JERALD TORRES on: 2025 02:44 PM Modules accepted: Orders * Telephone Encounter - Jerald Torres MA - 2025 2:44 PM EST Spoke with pt. verified. Relayed msg. Urine tests sent to [facility]. * Telephone Encounter - Jerald Torres MA - 2025 8:39 AM EST 2nd attempt- Advised pt to call the office during clinic hours . * Addendum Note - Jerald Torres MA - 09/28/2025 8:23 AM ESTAddended by: JERALD TORRES on: 09/28/2025 08:23 AM Modules accepted: Orders * Telephone Encounter - Jerald Torres MA - 09/28/2025 8:22 AM EST 1st attempt- Advised pt to call the office during clinic hours . Need to verify lab * Telephone Encounter - Jerald Torres MA - 09/24/2025 3:55 PM EST Pt called marketing operations consultant triage line at this time. verified. Pt states that even after MELYSSA fixed her interstim, she is still going through x3 depends through the night and 2 packs of pads every 2-3 days. * Telephone Encounter - Brandi García LPN - 08/31/2025 3:24 PM EDT Pt reports she is having issues with her interstem, stating it needs to be adjusted, she is having some incontinence. Pt scheduled 09/05/25 documented in this encounter Plan of Treatment NameTypePriorityAssociated DiagnosesOrder ScheduleUrine cultureMicrobiology Routine E. coli UTI Expected: 2025 (Approximate), Expires: 2026Urinalysis with reflex microscopicLabRoutine E. coli UTI Expected: 2025 (Approximate), Expires: 2026documented as of this encounter Visit Diagnoses Diagnosis E. coli UTI Urinary tract infection, site not specified documented in this encounter Care Teams Team MemberRelationshipSpecialtyStart DateEnd Date Adebayo Frye MD [address] [place] [address] PCP - GeneralPediatrics03/27/23documented as of this encounter
[2025-10-05 06:51] LABS: Glucose Urine UA NEGATIVE (NEGATIVE)
[2025-10-05 07:07] LABS: Cast Seen? NONE SEEN #/LPF (NONE SEEN); Crystals Seen? None Seen #/HPF (None Seen); Urine Culture Indicated ALREADY ORDERED
== END 2025-10-05 06:34 | disposition home or self-care (01) ==
LOC: LAB 06:37
PROVIDERS: PCP Nurse Practitioner; Visit Provider Obstetrics & Gynecology
DX: N39.0 Urinary tract infection, site not specified (principal); B96.20 Unspecified Escherichia coli [E. coli] as the cause of diseases classified elsewhere
CPT/HCPCS: 81001; 87086; 87088; 87186